=== PATIENT | female | born 1945 | race Caucasian/White ===

== ENCOUNTER 2017-02-28 19:56 | Emergency (ER) | payer OTHER ==
[~2017-02-28 19:56] MED LIST: ALBUTEROL INH; ASA5GR PO; ASMANEX INH; ATROVENT HFA17 MCG INH; CELEXA40 MG PO; DSS PO; ETODOLAC ER400 MG OR; FOSAMAX35 MG PO; L40 PO; LISINOPRIL40 MG PO; MICRO-K10 MEQ PO; MINERALS; MINERALS PO; MULTI; MULTIVITAMI PO; NEOPORACIN EX; OS500+D PO; OXYCODONE HCL PO; PCET PO; PRILO PO; VITAMIN D31000 UNIT PO
[2017-02-28 20:36] LABS: BASOPHILS 0.7 %; BASOPHILS ABSOLUTE 0.07 10/3/uL (0.0-0.16); EOSINOPHILS 0.8 %; EOSINOPHILS ABSOLUTE 0.09 10/3/uL (0.0-0.53); ER CBC TAT 0 Hrs 09 Mins; HEMOGLOBIN 15.1 g/dL (12.0-16.0); IMMATURE GRANULOCYTES 0.4 %; IMMATURE GRANULOCYTES ABSOLUTE 0.04 10/3/uL (0.0-0.11); LYMPHOCYTES ABSOLUTE 2.03 10/3/uL (0.67-4.30); MEAN CORPUS HGB CONC 34.9 g/dL (32.0-36.0); MEAN CORPUSCULAR HEMOGLOB 30.4 pg (26.0-34.0); MEAN CORPUSCULAR VOLUME 87.3 fL (80-100); MEAN PLATELET VOLUME 10.1 fL (9.2-13.0); MONOCYTES 10.5 %; MONOCYTES ABSOLUTE 1.12 10/3/uL (0.21-1.20); NEUTROPHILS 68.6 %; NEUTROPHILS ABSOLUTE 7.33 10/3/uL (2.02-8.40); PLATELET COUNT 242 10/3/uL (150-400); RBC DISTRIBUTION WIDTH 14.2 % (12.0-16.0); WHITE BLOOD CELLS 10.7 10/3/uL (4.5-10.5)
[2017-02-28 20:37] LABS: HEMATOCRIT 43.3 % (36.0-48.0); MANUAL DIFF NO %; RED CELL COUNT 4.96 10/6/uL (4.0-5.6)
[2017-02-28 20:46] LABS: INTERNATIONAL NORMAL RATI 1.6 UNITS (-); PARTIAL THROMBO TIME 32.9 SEC (22.5-37.2); PROTIME (NOT ORD) 18.9 SEC (12.0-14.5)
[2017-02-28 20:53] LABS: CHEST PAIN PROFILE TAT 0 Hrs 26 Mins; CO2 (CARBON DIOXIDE) 33 MMOL/L (24-34); SODIUM, SERUM 132 MMOL/L (135-148); TROPONIN I <0.02 NG/ML (<0.05)
[2017-02-28 20:54] LABS: BUN (BLOOD UREA NITROGEN) 24 MG/DL (6-23); CHLORIDE, SERUM 88 MMOL/L (96-112); CREATININE 1.79 MG/DL (0.55-1.02); GFR AFRICAN AMERICAN 33 ML/MIN (>=60); GFR NON AFRICAN AMERICAN 28 ML/MIN (>=60); GLUCOSE, SERUM 168 MG/DL (60-99); POTASSIUM, SERUM 2.9 MMOL/L (3.5-5.3)
== END 2017-03-01 00:52 | disposition home or self-care (01) ==
LOC: ER 19:56
PROVIDERS: Specialist
DX: I48.91 Unspecified atrial fibrillation (principal); E87.6 Hypokalemia; Z88.5 Allergy status to narcotic agent; Z88.1 Allergy status to other antibiotic agents; Z88.8 Allergy status to other drugs, medicaments and biological substances; Z79.82 Long term (current) use of aspirin; Z79.899 Other long term (current) drug therapy
CPT/HCPCS: 71020; 80048; 83735; 84484; 85025; 85610; 85730; 93005; 96374; 99285; A9270-GY; J2405